=== PATIENT | female | born 1930 | race Caucasian/White ===

== ENCOUNTER 2019-07-28 05:35 | Day surgery (SDC) | payer MEDICARE, OTHER ==
[~2019-07-28] VITALS: Ht 154.9 cm; Wt 59.0 kg
[~2019-07-28 05:35] MED LIST: ATENOLOL50 MG PO; AVAPRO300 MG PO; CENTRUM SILVER1 EAC3 PO; HYDROCHLOROTHIA25 MG PO; IRBESARTAN300 MG PO; LO-DOSE ASPIRIN81 M1 PO; METOPROLOL SUC100 MG PO; NORCO 5-325 TA1 EACH PO; PRESERVISION A1 EAC3 PO; TRAVATAN Z5 ML OPTH; VITAMIN D32000 UNI1 PO
--- NOTE | 2019-07-28 07:55 | NUR ---
07/28/19 0755 Heidi Chand [id number] PT ARRVIED TO PACU ASLEEP WITH ORAL AIRWAY IN PLACE. RESP EVEN AND UNLABORED ON 10L VIA MASK. ACCOUNTING SPECIALIST GIVING BP MEDICATION.
--- NOTE | 2019-07-29 06:43 | OR ---
[facility] [address] [place], [place] [address] Signed DATE OF OPERATION: SURGEON: Roberto Bhakta MD PREOPERATIVE DIAGNOSES: 1. Personal history of colonic polyps in 2006. 2. Low anterior resection for rectal cancer in 2016 at [facility]. POSTOPERATIVE DIAGNOSES: 1. Side-to-end stapled colorectal anastomosis at 5 cm. 2. 4 mm polyp at 20 cm. 3. 4 mm polyp at 21 cm. 4. 4 mm polyp at 50 cm. 5. 4 mm polyp at 60 cm (transverse colon). 6. Minimal diverticulosis. 7. [id number]-[id number] internal hemorrhoids. PROCEDURE: Colonoscopy with hot biopsy. ESTIMATED BLOOD LOSS: None. INDICATIONS: Augustina is an 89-year-old female who still gets around quite well. 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 She uses a cane mainly because her knees give her no trouble. She said her family lives into the mid 90s. From what I can see based on her functional status, it looks like she has headed in that same direction. She had colonic polyps removed back in 2005. She then had a rectal cancer requiring a low anterior resection at [facility] in August 2016. She did not require neoadjuvant nor adjuvant chemoradiation therapy. She has changed to a new primary care provider and was asked to come and see me for followup colonoscopy. She says she is doing great and has no lower GI complaints. There is no family history of colon cancer or polyps. I gave Augustina a booklet on colonoscopy in the office. We looked at that together along with the risks including, but not limited to, gas bloating, crampy abdominal pain, bleeding, perforation requiring surgery, and missed diagnosis. We also reviewed the need for IV conscious sedation. She reminded me that Versed and fentanyl made her extremely sick and she had significant nausea and vomiting. She actually had propofol on her last colonoscopy and that worked out very nicely. Consequently, we went ahead and scheduled her with our anesthesia Electronically Signed By: ROBERTO BHAKTA MD 07/29/19 0643 PATIENT NAME: AUGUSTINA BOLTON OPERATIVE REPORT DATE OF : [birth year] REPORT #: [id number] PHYSICIAN: ROBERTO BHAKTA MD PCP: WILMER FLETCHER DO REPORT IS CONFIDENTIAL AND NOT TO BE RELEASED WITHOUT AUTHORIZATION [facility] [address] [place] [id number] Signed provider on this occasion for a propofol infusion. She had expressed her understanding and wished to proceed. DESCRIPTION OF PROCEDURE: Augustina was taken into our endoscopy suite and placed in the left lateral decubitus position. She was given IV sedation with propofol per our nurse apparel manufacture instructor. A digital rectal exam was performed and I can feel her anastomosis at the tip of my index finger. It appears to be well healed without ulceration. There were no masses. She has good sphincter tone. The adult colonoscope was then introduced and advanced under direct visualization of camera into the cecum itself without difficulty. Augustina was quite easy to pass the scope. Her prep was good. The scope was slowly withdrawn. We took pictures throughout for photodocumentation. We could easily see the appendiceal orifice and the ileocecal valve. She does have some diverticula scattered throughout the colon, more so in the proximal area than in the left side. They were minimal to moderate in size, minimal to moderate in number, and scattered about. We can see her well-healed circular anastomosis at 5 cm from the anal verge. She has a side-to-end stapled anastomosis. We could see the end of the left colon with a couple of silk stitches and it has well healed as well. The rectum itself was completely unremarkable. We did remove several small polyps as the colonoscope was removed as listed above. We had just enough room to retroflex the scope and she has [id number]-jg-[id number] internal hemorrhoids. After this, the gas was suctioned out and the colonoscope removed. Augustina tolerated the procedure quite well. RECOMMENDATIONS: I will see Augustina back in my office in 7 to 14 days to review her results. Roberto Bhakta MD [facility]/MODL /[id number] cc: MD Dr. Wood Smith [facility] [place] Electronically Signed By: ROBERTO BHAKTA MD 07/29/19 0643 PATIENT NAME: AUGUSTINA BOLTON OPERATIVE REPORT DATE OF : [birth year] REPORT #: [id number] PHYSICIAN: ROBERTO BHAKTA MD PCP: WILMER FLETCHER DO REPORT IS CONFIDENTIAL AND NOT TO BE RELEASED WITHOUT AUTHORIZATION [address] [address] Signed DO Lance Kennedy MD Copies: ROBERTO BHAKTA MD, ARIAN DO QUACKENBUSH, ROBERT C MD ~ Electronically Signed By: ROBERTO BHAKTA MD 07/29/19 0643 PATIENT NAME: AUGUSTINA BOLTON OPERATIVE REPORT DATE OF : [birth year] REPORT #: [id number] PHYSICIAN: ROBERTO BHAKTA MD PCP: WILMER FLETCHER DO REPORT IS CONFIDENTIAL AND NOT TO BE RELEASED WITHOUT AUTHORIZATION
--- NOTE | 2019-08-01 12:26 | PATH ---
[facility] [address] [place], [place] [address] Signed SPECIMEN(S): A COLON POLYP AT 20 CM SPECIMEN(S): B MID TRANSVERSE POLYP AT 60 CM SPECIMEN(S): C COLON POLYP AT 50 CM SPECIMEN(S): D COLON POLYP AT 21 CM SPECIMEN SOURCE: A. COLON POLYP AT 20 CM B. MID TRANSVERSE POLYP AT 60 CM C. COLON POLYP AT 50 CM D. COLON POLYP AT 21 CM CLINICAL HISTORY: Polyps, diverticulosis, internal hemorrhoids. MICROSCOPIC DESCRIPTION: Histologic sections of all submitted blocks are examined by light microscopy. These findings, together with the gross examination, support the pathologic diagnosis. FINAL PATHOLOGIC DIAGNOSIS: A. Colon, polyp at 20 cm, polypectomy: - Tubular adenoma. - Negative for high-grade dysplasia or malignancy. B. Colon, mid transverse, polyp at 60 cm, polypectomy: - Tubular adenoma. - Negative for high-grade dysplasia or malignancy. C. Colon, polyp at 50 cm, polypectomy: - Colonic mucosa with no histopathologic abnormality. - Negative for dysplasia or malignancy. D. Colon, polyp at 21 cm, polypectomy: - Colonic mucosa with cautery artifact, see comment. - Negative for dysplasia or malignancy. COMMENT: Sections of the colon polyp at 21 cm demonstrates a fragment of colonic mucosa with abundant cautery artifact, which precludes the evaluation of hyperplastic changes. No dysplasia or malignancy is identified. NAL:cml:[id number] GROSS DESCRIPTION: PATIENT NAME: AUGUSTINA BOLTON PATHOLOGY DATE OF : [birth year] REPORT #: [id number] PHYSICIAN: AMINA GARCIA PCP: WILMER FLETCHER DO REPORT IS CONFIDENTIAL AND NOT TO BE RELEASED WITHOUT AUTHORIZATION [facility] [address] [place], [place] [address] Signed A. The specimen is received in a formalin filled specimen container labeled "ES, #1". A single mckeon biopsy is 0.3 cm and entirely submitted in cassette A1. B. The specimen is received in a formalin filled specimen container labeled "ES, #2". A single mckeon biopsy is 0.3 cm and entirely submitted in cassette B1. C. The specimen is received in a formalin filled specimen container labeled "ES, #3". A single mckeon biopsy is 0.2 cm and entirely submitted in cassette C1. D. The specimen is received in a formalin filled specimen container labeled "ES, #4". A single mckeon biopsy is 0.3 cm and entirely submitted in cassette D1. GW (under the direct supervision of a pathologist) The Gross Description was prepared using a voice recognition system. The report was reviewed for accuracy; however, sound-alike word errors, addition and/or deletions may occur. If there is any question about this report, please contact Client Services. PERFORMING LABORATORY: The technical component was performed by [facility], [address] [place] [id number] (Wild Life Manager: Suzette Mackenzie MD; CLIA# [id number]). The technical component was performed by [facility], [address] [place] [address] (Wild Life Manager: Suzette Mackenzie MD; CLIA# [id number]). Diagnostician: Jasmine Zamudio MD Pathologist Electronically Signed 07/31/2019 Copies: ~ PATIENT NAME: AUGUSTINA BOLTON PATHOLOGY DATE OF : [birth year] REPORT #: [id number] PHYSICIAN: AMINA PATHOLOGY PCP: WILMER FLETCHER DO REPORT IS CONFIDENTIAL AND NOT TO BE RELEASED WITHOUT AUTHORIZATION
== END 2019-07-28 08:43 | disposition home or self-care (01) ==
LOC: OPS 05:35 → DS 05:35 → OPS 06:45 → DS 06:45 → OPS 08:43
PROVIDERS: Colon & Rectal Surgery
PROC: 0DBL8ZZ Excision of Transverse Colon, Via Natural or Artificial Opening Endoscopic (ICD-10-PCS; 2019-07-28)
PROC: 0DBE8ZZ Excision of Large Intestine, Via Natural or Artificial Opening Endoscopic (ICD-10-PCS; 2019-07-28)
PROC: 0DBE8ZZ Excision of Large Intestine, Via Natural or Artificial Opening Endoscopic (ICD-10-PCS; principal; 2019-07-28 06:45)
DX: Z12.11 Encounter for screening for malignant neoplasm of colon (principal); D12.3 Benign neoplasm of transverse colon; D12.6 Benign neoplasm of colon, unspecified; K57.30 Diverticulosis of large intestine without perforation or abscess without bleeding; K63.5 Polyp of colon; K64.8 Other hemorrhoids; K21.9 Gastro-esophageal reflux disease without esophagitis; I10 Essential (primary) hypertension; H40.9 Unspecified glaucoma; G62.9 Polyneuropathy, unspecified; E78.00 Pure hypercholesterolemia, unspecified; I49.9 Cardiac arrhythmia, unspecified; Z86.010 Personal history of colon polyps; Z98.0 Intestinal bypass and anastomosis status; Z85.048 Personal history of other malignant neoplasm of rectum, rectosigmoid junction, and anus; Z90.49 Acquired absence of other specified parts of digestive tract; Z79.899 Other long term (current) drug therapy; Z88.5 Allergy status to narcotic agent; Z88.8 Allergy status to other drugs, medicaments and biological substances; Z91.040 Latex allergy status; Z88.0 Allergy status to penicillin; Z88.2 Allergy status to sulfonamides; Z88.4 Allergy status to anesthetic agent
CPT/HCPCS: 88305; J2704; J3490; J7121